=== PATIENT | male | born 1940 | race Caucasian/White ===

== ENCOUNTER → 2021-12-15 | Outpatient (CLI) | payer MEDICARE ==
[~2021-12-15] MED LIST: ACET-897 PO; GLUC1TAB58 PO
== END ==
LOC: M LABSMTC 11:21
PROVIDERS: ATTEND Ophthalmology
DX: Z11.52 Encounter for screening for COVID-19 (principal); Z20.822 Contact with and (suspected) exposure to COVID-19

== ENCOUNTER 2021-12-19 11:14 | Day surgery (SDC) | payer MEDICARE ==
[~2021-12-19] VITALS: Ht 177.8 cm; Wt 70.8 kg
[~2021-12-19 11:14] MED LIST changes: +ACETYLCHOLINE OPHTH SOLN 1% 2ML (MIOCHOL-E) As Ordered ONE; +BSS IRR 500ML/OMIDRIA 4ML IRR BAG (OR ONLY) As Ordered ONE; +CEFUROXIME 1MG/0.1ML INTRACAMERAL INJ As Ordered ONE; +LIDOCAINE 1% SDV 5ML VIAL As Ordered ONE; +PROPARACAINE 0.5% OPHTH SOL 15ML OD ONE
[2021-12-19] MEDS: OFLOXACIN 0.3 % (OCUFLOX) OPTH SOL 5ML OD SCH ×2 (13:06→13:12)
[2021-12-19] MEDS: PHENYLEPHRINE 2.5% OPHTH SOL 2ML OD SCH ×2 (13:06→13:12)
[2021-12-19] MEDS: TROPICAMIDE 1% OPHTH SOLN 2ML OD SCH ×2 (13:06→13:12)
[2021-12-19] MEDS ORDERED: fentaNYL 100 MCG/2 ML INJECTION As Ordered ONE (13:54)
[2021-12-19] MEDS ORDERED: MIDAZOLAM INJ 2MG/2ML VIAL (J2250 PER 1MG) As Ordered ONE (13:54)
[2021-12-19] MEDS ORDERED: TRYPAN BLUE 0.06 % 2.25 ML OPHTH SYR (VISIONBLUE) As Ordered ONE (13:56)
[2021-12-19] MEDS ORDERED: DUOVISC (0.50ML VISCOAT/0.85ML PROVISC) OPHTH KIT As Ordered ONE (14:10)
[2021-12-19 14:30] VITALS: BP 161/74
== END 2021-12-19 14:43 | disposition home or self-care (01) ==
LOC: M SDC 11:14
PROVIDERS: ATTEND Ophthalmology
DX: H25.11 Age-related nuclear cataract, right eye (principal); H21.561 Pupillary abnormality, right eye; N28.9 Disorder of kidney and ureter, unspecified; I10 Essential (primary) hypertension; F17.210 Nicotine dependence, cigarettes, uncomplicated; Z96.641 Presence of right artificial hip joint
CPT/HCPCS: 66984; J0697; J1097; J2250; J3010; V2632

== ENCOUNTER → 2022-02-17 | Outpatient (CLI) | payer MEDICARE ==
[~2022-02-17] MED LIST changes: -ACETYLCHOLINE OPHTH SOLN 1% 2ML (MIOCHOL-E) As Ordered ONE; -BSS IRR 500ML/OMIDRIA 4ML IRR BAG (OR ONLY) As Ordered ONE; -CEFUROXIME 1MG/0.1ML INTRACAMERAL INJ As Ordered ONE; -LIDOCAINE 1% SDV 5ML VIAL As Ordered ONE; -PROPARACAINE 0.5% OPHTH SOL 15ML OD ONE
== END ==
LOC: M LABSMTC 09:44
PROVIDERS: ATTEND Anesthesiology
DX: Z01.818 Encounter for other preprocedural examination (principal); Z11.52 Encounter for screening for COVID-19

== ENCOUNTER 2022-02-20 09:06 | Day surgery (SDC) | payer MEDICARE ==
[~2022-02-20] VITALS: Ht 182.9 cm; Wt 72.9 kg
[~2022-02-20 09:06] MED LIST changes: +BSS IRR 500ML/OMIDRIA 4ML IRR BAG (OR ONLY) As Ordered ONE; +CEFUROXIME 1MG/0.1ML INTRACAMERAL INJ As Ordered ONE; +LIDOCAINE 1% SDV 5ML VIAL As Ordered ONE; +OFLOXACIN 0.3 % (OCUFLOX) OPTH SOL 5ML OS SCH; +PHENYLEPHRINE 2.5% OPHTH SOL 2ML OS SCH; +PROPARACAINE 0.5% OPHTH SOL 15ML OS ONE; +TROPICAMIDE 1% OPHTH SOLN 2ML OS SCH
[2022-02-20] MEDS ORDERED: TRYPAN BLUE 0.06 % 2.25 ML OPHTH SYR (VISIONBLUE) As Ordered ONE (10:41)
[2022-02-20] MEDS ORDERED: fentaNYL 100 MCG/2 ML INJECTION As Ordered ONE (10:43)
[2022-02-20] MEDS ORDERED: MIDAZOLAM INJ 2MG/2ML VIAL (J2250 PER 1MG) As Ordered ONE (10:44)
[2022-02-20 10:55] VITALS: BP 149/79
== END 2022-02-20 11:21 | disposition home or self-care (01) ==
LOC: M SDC 09:06
PROVIDERS: ATTEND Ophthalmology
DX: H25.22 Age-related cataract, morgagnian type, left eye (principal); H21.562 Pupillary abnormality, left eye; N18.9 Chronic kidney disease, unspecified; F17.210 Nicotine dependence, cigarettes, uncomplicated
CPT/HCPCS: 66982; J0697; J1097; J2250; J3010; V2632